=== PATIENT | male | born 1970 | race African-American/Black ===

== ENCOUNTER 2017-02-28 22:56 | Emergency (ER) | payer OTHER ==
[~2017-02-28] VITALS: Ht 177.8 cm; Wt 100.0 kg
[2017-03-01] MEDS ORDERED: IBUPROFEN 800MG TABLET PO ONE (00:45)
[2017-03-01] MEDS ORDERED: HYDROCODONE/ACETAMINOPHEN 5/325MG TABLET PO ONE (00:45)
[2017-03-01 01:45] VITALS: BP 129/88
== END 2017-03-01 01:59 | disposition home or self-care (01) ==
LOC: ER 22:56
DX: S09.90XA Unspecified injury of head, initial encounter (principal); S16.1XXA Strain of muscle, fascia and tendon at neck level, initial encounter; F17.210 Nicotine dependence, cigarettes, uncomplicated; F12.10 Cannabis abuse, uncomplicated; S76.812A Strain of other specified muscles, fascia and tendons at thigh level, left thigh, initial encounter; W01.0XXA Fall on same level from slipping, tripping and stumbling without subsequent striking against object, initial encounter; Y93.89 Activity, other specified; Y92.512 Supermarket, store or market as the place of occurrence of the external cause
CPT/HCPCS: 70450; 71010; 72125; 72170; 99284; Z7610

== ENCOUNTER 2019-11-11 18:07 | Emergency (ER) | payer OTHER ==
[~2019-11-11] VITALS: Ht 177.8 cm; Wt 98.0 kg
[2019-11-11] MEDS ORDERED: IBUPROFEN 600MG TABLET PO ONE (23:00)
[2019-11-12 00:06] VITALS: BP 175/99
== END 2019-11-12 00:30 | disposition home or self-care (01) ==
LOC: ER 18:07
DX: M25.512 Pain in left shoulder (principal); R20.2 Paresthesia of skin; F12.10 Cannabis abuse, uncomplicated
CPT/HCPCS: 73030; 93005; 99283

== ENCOUNTER 2019-12-01 11:44 | Emergency (ER) | payer OTHER ==
[~2019-12-01] VITALS: Ht 177.8 cm; Wt 95.0 kg
[2019-12-01 12:10] VITALS: BP 158/99
== END 2019-12-01 14:35 | disposition left against medical advice (07) ==
LOC: ER 11:44
DX: R10.9 Unspecified abdominal pain (principal); Z53.21 Procedure and treatment not carried out due to patient leaving prior to being seen by health care provider

== ENCOUNTER 2020-11-08 18:41 | Emergency (ER) | payer OTHER ==
[~2020-11-08] VITALS: Ht 180.3 cm; Wt 98.0 kg
[2020-11-08 19:27] LABS: BASOPHILS % 0.6 % (0.0-2.0); EOSINOPHILS % 1.7 % (0.0-5.0); HEMATOCRIT. 47.8 % (42.0-52.0); HEMOGLOBIN. 15.2 g/dL (14.0-18.0); LYMPHOCYTES % 25.3 % (20.0-50.0); MEAN CORPUSCULAR HEMOGLOBIN 22.6 pg (28.0-32.0); MEAN CORPUSCULAR VOLUME 71.2 fL (80.0-94.0); MEAN PLATELET VOLUME 8.3 fl (7.4-10.4); MONOCYTES % 6.6 % (2.0-8.0); NEUTROPHILS % 65.8 % (40.0-76.0); PLATELET 212 x1000/uL (130-400); RED BLOOD CELL COUNT 6.72 mill/uL (4.7-6.1); RED CELL DISTRIBUTION WIDTH 15.4 % (11.6-14.6)
[2020-11-08 19:33] LABS: CHLORIDE 106 mEq/L (98-107)
[2020-11-08] MEDS ORDERED: DOCUSATE SODIUM 100MG CAPSULE PO PRN (23:15)
[2020-11-08] MEDS ORDERED: GUAIFENESIN 200MG/10ML SUGAR FREE UDC PO PRN (23:15)
[2020-11-08] MEDS ORDERED: CLONIDINE 0.1MG TABLET PO PRN (23:15)
[2020-11-08] MEDS ORDERED: ONDANSETRON HCL 4MG/2ML INJ IV PRN (23:15)
[2020-11-08] MEDS ORDERED: HYDROCODONE/ACETAMINOPHEN 5/325MG TABLET PO PRN (23:15)
[2020-11-08] MEDS ORDERED: ACETAMINOPHEN 325MG TABLET PO PRN (23:15)
[2020-11-08] MEDS ORDERED: IPRATROPIUM/ALBUTEROL 0.5-3(2.5)MG/3ML NEB NEB PRN (23:15)
[2020-11-08] MEDS ORDERED: MAGNESIUM/ALUMINUM HYDROXIDE/SIMETHICONE 30ML UDC PO PRN (23:15)
[2020-11-08 23:48] LABS: CHLORIDE 106 mEq/L (98-107)
[2020-11-09] MEDS ORDERED: ENOXAPARIN 30MG/0.3ML SYR SUBCUT SCH
[2020-11-09 00:21] LABS: CLARITY URINE CLEAR (CLEAR); COLOR URINE YELLOW (YELLOW); KETONES URINE NEGATIVE (NEGATIVE); LEUKOCYTE ESTERASE URINE NEGATIVE (NEGATIVE); NITRITE URINE NEGATIVE (NEGATIVE); OCCULT BLOOD URINE NEGATIVE (NEGATIVE); PROTEIN URINE NEGATIVE (NEGATIVE); SPECIFIC GRAVITY URINE 1.012 (1.005-1.030); UROBILINOGEN URINE 0.2 E.U./dL (0.2-1.0)
[2020-11-09 00:25] LABS: *AMPHETAMINES SCREEN URINE NEGATIVE (NEGATIVE); *BARBITURATES SCREEN URINE NEGATIVE (NEGATIVE)
[2020-11-09 00:27] LABS: *COCAINE SCREEN URINE PRESUMTIVE POSITIVE (NEGATIVE)
[2020-11-09 00:28] LABS: CANNABINOID URINE SCREEN NEGATIVE (NEGATIVE)
[2020-11-09 00:32] LABS: *BENZODIAZEPINES SCREEN URINE NEGATIVE (NEGATIVE); METHADONE URINE SCREEN NEGATIVE (NEGATIVE); OPIATES URINE SCREEN NEGATIVE (NEGATIVE); PHENCYCLIDINE URINE SCREEN NEGATIVE (NEGATIVE)
[2020-11-09] MEDS ORDERED: IOHEXOL-350 100 ML BOTTLE ONE (03:01)
[2020-11-09 05:29] LABS: BASOPHILS % 0.3 % (0.0-2.0); EOSINOPHILS % 4.3 % (0.0-5.0); HEMOGLOBIN. 14.1 g/dL (14.0-18.0); LYMPHOCYTES % 40.9 % (20.0-50.0); MEAN CORPUSCULAR HEMOGLOBIN 22.1 pg (28.0-32.0); MEAN CORPUSCULAR VOLUME 70.9 fL (80.0-94.0); MEAN PLATELET VOLUME 8.4 fl (7.4-10.4); MONOCYTES % 8.3 % (2.0-8.0); NEUTROPHILS % 46.2 % (40.0-76.0); PLATELET 197 x1000/uL (130-400); RED BLOOD CELL COUNT 6.35 mill/uL (4.7-6.1); RED CELL DISTRIBUTION WIDTH 14.9 % (11.6-14.6)
[2020-11-09 05:51] LABS: CREATINE KINASE 569 IU/L (39-308)
[2020-11-09 05:52] LABS: CREATINE KINASE MB FRACTION < 1.0 ng/mL (0.5-3.6)
[2020-11-09] MEDS ORDERED: ASPIRIN 81MG EC TABLET PO SCH (09:00)
[2020-11-09 09:15] VITALS: BP 149/96
== END 2020-11-09 12:16 | disposition left against medical advice (07) ==
LOC: ER 18:50 → CANBEDREQ 11-09 09:25 → ER 11-09 12:16
DX: R07.2 Precordial pain (principal); R20.0 Anesthesia of skin; R06.02 Shortness of breath; I10 Essential (primary) hypertension; F12.90 Cannabis use, unspecified, uncomplicated
CPT/HCPCS: 36415; 70450; 71045; 71275; 80048; 80053; 80061; 80305; 81003; 82550; 82553; 83735; 83880; 84443; 84484; 85025; 93005; 96372; 99285; J1650; Q9967